=== PATIENT | male | born 2005 | race Caucasian/White ===

== ENCOUNTER 2024-01-03 21:27 | Emergency (ER) | payer OTHER, SELFPAY ==
[2024-01-03 21:29] VITALS: BP 128/75; PULSE 82; RESP 16; TEMP 36.3; O2SAT 100; BMI 20.3
--- NOTE | 2024-01-03 22:21 | ED.WOUNDLAC ---
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 Tonight clean wound, no pain, numbness tingling or weakness noted with this. But he said just a lot of blood inability to yearly get it to stop which is brought him in. He denies a history of anti use of anticoagulants, bleeding history, or other issues. 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 Onset (ago): minute(s) Extremity Location: Left: hand Place: home Patient tetanus UTD: Yes Context: accidental Associated symptoms: none Treatments prior to arrival: bandage Related Data Home Medications ?Medication ?Instructions ?Recorded ?Confirmed No Known Home Medications 01/03/24 01/03/24 Allergies Allergy/AdvReac Type Severity Reaction Status Date / Time No Known Drug Allergies Allergy Verified 01/03/24 21:32 Review of Systems Status of ROS: Reports: 10 or more systems reviewed and unremarkable except as noted in History and below Exam Narrative: Exam Narrative: On examination there is a small area on the lateral part of his left index finger, distal to D IP on the ulnar side, where he has pretty well scalp her avulsed 3 sides of approximately 1 cm side sq area of the skin. Next to the nail. D IP flexion extension is normal and cap refill is normal. The area of actually the pieces skin, looks like it may be white and devitalized, but will totally work as a graft skin. We did apply pressure for approximately 50 minutes bleedings stop, there is no evidence of any foreign body, glue was applied to good effect, and Stack finger splint was given to him. Estimated blood loss less than 2 mL. No comp Const: Vital Signs, click to edit/add: Vital Signs - 24 hr 01/03/24 21:29 Temperature 97.4 F L Pulse Rate [Left P ulse Oximeter] 82 Respiratory Rate 16 Blood Pressure [Ri ght Upper Arm] 128/75 Pulse Oximetry 100 Oxygen Delivery Me thod Room Air Documenting provider has reviewed patient's vital signs: yes Course Vital Signs Vital signs: Initial Vital Signs Temperature 97.4 F L 01/03/24 21:29 Temperature Source Temporal Artery Scan 01/03/24 21:29 Pulse Rate 82 01/03/24 21:29 Pulse Rhythm Regular 01/03/24 21:29 Respiratory Rate 16 01/03/24 21:29 Blood Pressure 128/75 01/03/24 21:29 Blood Pressure Mean 92 01/03/24 21:29 Blood Pressure Position Sitting 01/03/24 21:29 Pulse Oximetry 100 01/03/24 21:29 Oxygen Delivery Method Room Air 01/03/24 21:29 Vital Signs Temperature 97.4 F L 01/03/24 21:29 Pulse Rate 82 01/03/24 21:29 Respiratory Rate 16 01/03/24 21:29 Blood Pressure 128/75 01/03/24 21:29 Pulse Oximetry 100 01/03/24 21:29 Oxygen Delivery Method Room Air 01/03/24 21:29 Temperature 97.4 F L 01/03/24 21:29 Pulse Rate 82 01/03/24 21:29 Respiratory Rate 16 01/03/24 21:29 Blood Pressure 128/75 01/03/24 21:29 Pulse Oximetry 100 01/03/24 21:29 Oxygen Delivery Method Room Air 01/03/24 21:29 Discharge Plan Discharge Clinical Impression: Finger laceration Patient Disposition: Home w/ Parent or Adult Condition: Stable Instructions: Finger Laceration (ED) Additional Instructions: Glue will come off by itself in 3-4 days, I would wear the splint, unfortunately that will make it tough for you to play the violin, but given what I know about playing the violin you need your fingers intact. Watch for signs of infection such as redness swelling, fevers chills. That skin flap may also come off, but it is actually a great graft also, and given the vascular supply the fingers it may take nicely. Return as needed, Activity Level: Light activity Prescriptions: No Action No Known Home Medications Stand Alone Forms: MyHealth Info Instructions
== END 2024-01-03 22:24 | disposition home or self-care (01) ==
LOC: ED 22:19
PROVIDERS: Emergency Provider Family Medicine
DX: S61.211A Laceration without foreign body of left index finger without damage to nail, initial encounter (principal); W26.0XXA Contact with knife, initial encounter
CPT/HCPCS: 12001; 99283